=== PATIENT | female | born 1975 | race Caucasian/White ===

== ENCOUNTER 2017-02-27 07:04 | Emergency (ER) | payer OTHER ==
[~2017-02-27] VITALS: Ht 167.6 cm; Wt 81.4 kg
[~2017-02-27 07:04] MED LIST: APAP/HYDROCODON1 T13 PO; BAY PO; FLEXERIL10 MG PO; MAC100 PO; NEU300 PO; ZOC20 PO
[2017-02-27 07:40] LABS: BASOPHIL % 0.4 % (0-2); PLATELET COUNT 353 x10^3mcL (130-400); RED CELL DISTRIBUTION WIDTH 14.1 % (11.5-14.5)
[2017-02-27 08:01] LABS: CALCIUM 9.1 mg/dL (8.5-10.1); CARBON DIOXIDE 27.8 mmol/L (21-32); CHLORIDE SERUM 100 mmol/L (98-107); CREATININE SERUM 0.8 mg/dL (0.6-1.0); GFR1 > 60 mL/min; GLUCOSE SERUM 111 mg/dL (74-106); POTASSIUM SERUM 3.3 mmol/L (3.5-5.1); SODIUM SERUM 138 mmol/L (136-145)
[2017-02-27 08:05] LABS: ALKALINE PHOSPHATASE 92 U/L (46-116); ALT/SGPT 23 U/L (14-59); AMYLASE 47 U/L (25-115); AST/SGOT 16 U/L (15-37); BILIRUBIN TOTAL 0.4 mg/dL (0.20-1.00); LIPASE 159 IU/L (73-393); TOTAL PROTEIN, SERUM 7.9 g/dL (6.4-8.2)
[2017-02-27 08:21] LABS: AMPHETAMINE QUAL UR NONE DETECTED (NEG <=1000)
[2017-02-27 09:07] VITALS: BP 146/96
== END 2017-02-27 09:07 | disposition home or self-care (01) ==
LOC: ED 07:04
PROVIDERS: Emergency Medicine
DX: F41.0 Panic disorder [episodic paroxysmal anxiety] (principal); R06.4 Hyperventilation; J45.909 Unspecified asthma, uncomplicated; E87.6 Hypokalemia
CPT/HCPCS: 36415; 36600; 85378; 94150; G0480

== ENCOUNTER 2017-03-07 22:41 | Emergency (ER) | payer OTHER ==
[2017-03-07 22:57] VITALS: BP 139/85
== END 2017-03-08 00:08 | disposition home or self-care (01) ==
LOC: ED 22:41
DX: S50.01XA Contusion of right elbow, initial encounter (principal); S70.01XA Contusion of right hip, initial encounter; W01.0XXA Fall on same level from slipping, tripping and stumbling without subsequent striking against object, initial encounter; Y93.89 Activity, other specified; Y92.89 Other specified places as the place of occurrence of the external cause; Y99.8 Other external cause status
CPT/HCPCS: J1885

== ENCOUNTER 2017-04-01 22:43 | Emergency (ER) | payer OTHER ==
[2017-04-01 22:48] VITALS: BP 150/100
== END 2017-04-01 23:51 | disposition left against medical advice (07) ==
LOC: ED 22:43
DX: Z53.21 Procedure and treatment not carried out due to patient leaving prior to being seen by health care provider (principal)

== ENCOUNTER 2018-01-01 08:50 | Emergency (ER) | payer OTHER ==
[~2018-01-01] VITALS: Ht 167.6 cm; Wt 81.6 kg
[2018-01-01 08:55] VITALS: Ht 167.6 cm; Wt 81.6 kg
[2018-01-01 11:16] VITALS: BP 140/76
== END 2018-01-01 11:16 | disposition home or self-care (01) ==
LOC: ED 08:50
DX: L60.0 Ingrowing nail (principal)
CPT/HCPCS: J2001

== ENCOUNTER 2018-08-10 05:49 | Emergency (ER) | payer OTHER ==
[~2018-08-10] VITALS: Ht 167.6 cm; Wt 82.6 kg
[2018-08-10 06:02] VITALS: Ht 167.6 cm; Wt 82.6 kg
[2018-08-10 07:02] LABS: AMPHETAMINE QUAL UR NONE DETECTED (See below)
[2018-08-10 07:09] LABS: BASOPHIL % 0.4 % (0-2); PLATELET COUNT 341 x10^3mcL (130-400); RED CELL DISTRIBUTION WIDTH 14.1 % (11.5-14.5)
[2018-08-10 07:19] LABS: CALCIUM 8.5 mg/dL (8.5-10.1); CARBON DIOXIDE 26.4 mmol/L (21-32); CHLORIDE SERUM 102 mmol/L (98-107); CREATININE SERUM 0.8 mg/dL (0.6-1.0); GFR1 > 60 mL/min; GLUCOSE SERUM 110 mg/dL (74-106); POTASSIUM SERUM 3.8 mmol/L (3.5-5.1); SODIUM SERUM 135 mmol/L (136-145)
[2018-08-10 07:25] LABS: ALBUMIN 3.7 g/dL (3.4-5.0); ALKALINE PHOSPHATASE 79 U/L (46-116); ALT/SGPT 25 U/L (14-59); AMYLASE 39 U/L (25-115); AST/SGOT 18 U/L (15-37); LIPASE 118 IU/L (73-393); TOTAL PROTEIN, SERUM 7.6 g/dL (6.4-8.2)
[2018-08-10 11:32] VITALS: BP 158/100
== END 2018-08-10 10:50 | disposition home or self-care (01) ==
LOC: ED 05:49
PROVIDERS: Emergency Medicine
DX: J45.909 Unspecified asthma, uncomplicated (principal); Z98.51 Tubal ligation status; Z98.890 Other specified postprocedural states
CPT/HCPCS: 36415; 85378; G0480; Q9967

== ENCOUNTER 2018-12-04 09:42 | Emergency (ER) | payer OTHER ==
[~2018-12-04] VITALS: Ht 167.6 cm; Wt 81.6 kg
[2018-12-04 09:43] VITALS: Ht 167.6 cm; Wt 81.6 kg
[2018-12-04 11:46] VITALS: BP 140/88
== END 2018-12-04 12:01 | disposition home or self-care (01) ==
LOC: ED 09:42
DX: S93.402A Sprain of unspecified ligament of left ankle, initial encounter (principal); J45.909 Unspecified asthma, uncomplicated; Z98.51 Tubal ligation status; Z98.890 Other specified postprocedural states; W23.1XXA Caught, crushed, jammed, or pinched between stationary objects, initial encounter; Y93.89 Activity, other specified; Y92.89 Other specified places as the place of occurrence of the external cause; Y99.8 Other external cause status

== ENCOUNTER 2020-10-27 01:27 | Emergency (ER) | payer OTHER ==
[~2020-10-27] VITALS: Ht 167.6 cm; Wt 77.6 kg
[2020-10-27 01:44] VITALS: Ht 167.6 cm; Wt 77.6 kg
[2020-10-27 06:34] LABS: BASOPHIL % 0.7 % (0.2-1.3); PLATELET COUNT 325 x10^3mcL (179-408); RED CELL DISTRIBUTION WIDTH 14.1 % (12.3-17.7)
[2020-10-27 06:57] LABS: CARBON DIOXIDE 27.5 mmol/L (21-32); CHLORIDE SERUM 102 mmol/L (98-107); CREATININE SERUM 0.6 mg/dL (0.6-1.0); GFR1 > 60 mL/min; GLUCOSE SERUM 90 mg/dL (74-106); POTASSIUM SERUM 4.2 mmol/L (3.5-5.1); SODIUM SERUM 138 mmol/L (136-145)
[2020-10-27 07:02] LABS: ALBUMIN 3.8 g/dL (3.4-5.0); ALKALINE PHOSPHATASE 71 U/L (46-116); ALT/SGPT 25 U/L (14-59); AST/SGOT 16 U/L (15-37); BILIRUBIN TOTAL 0.17 mg/dL (0.20-1.00); TOTAL PROTEIN, SERUM 7.6 g/dL (6.4-8.2)
[2020-10-27 08:01] LABS: AMPHETAMINE QUAL UR NONE DETECTED (See below)
[2020-10-27 09:11] VITALS: BP 137/81
== END 2020-10-27 09:11 | disposition home or self-care (01) ==
LOC: ED 01:27
PROVIDERS: Emergency Medicine
DX: R07.89 Other chest pain (principal); R06.02 Shortness of breath; R20.0 Anesthesia of skin; I10 Essential (primary) hypertension; J45.909 Unspecified asthma, uncomplicated; Z98.51 Tubal ligation status; Z98.890 Other specified postprocedural states
CPT/HCPCS: 83880